=== PATIENT | male | born 1985 | race Caucasian/White ===

== ENCOUNTER 2019-01-26 22:26 | Inpatient (IN) | payer MEDICAID ==
[~2019-01-26] VITALS: Ht 167.6 cm; Wt 123.6 kg
[2019-01-26] MEDS ORDERED: SODIUM CHLORIDE 0.9% 1,000 ML IV ONE (22:31)
[2019-01-26] MEDS ORDERED: ASPIRIN 81MG TABLET PO ONE (22:45)
[2019-01-26] MEDS ORDERED: METOPROLOL TARTRATE 50MG TABLET PO ONE (22:45)
[2019-01-26 23:24] LABS: CHLORIDE 106 mEq/L (98-107)
[2019-01-26 23:26] LABS: BASOPHILS % 0.9 % (0.0-2.0); EOSINOPHILS % 2.2 % (0.0-5.0); HEMATOCRIT. 45.5 % (42.0-52.0); HEMOGLOBIN. 15.4 g/dL (14.0-18.0); MEAN CORPUSCULAR VOLUME 88.7 fL (80.0-94.0); MEAN PLATELET VOLUME 9.7 fl (7.4-10.4); MONOCYTES % 7.1 % (2.0-8.0); NEUTROPHILS % 70.8 % (40.0-76.0); PLATELET 178 x1000/uL (130-400); RED BLOOD CELL COUNT 5.13 mill/uL (4.7-6.1); RED CELL DISTRIBUTION WIDTH 15.2 % (11.6-14.6)
[2019-01-26 23:28] LABS: ETHANOL BLOOD < 10 mg/dL
[2019-01-26] MEDS ORDERED: ENOXAPARIN 120MG/0.8ML SYR SUBCUT NR (23:45)
[2019-01-27] VITALS (10 sets, daily range): BP systolic 99–153; BP diastolic 55–93
[2019-01-27] LABS: PROTHROMBIN TIME 10.6 sec (9.6-11.0)
[2019-01-27 00:19] LABS: *AMPHETAMINES SCREEN URINE NEGATIVE (NEGATIVE)
[2019-01-27 00:20] LABS: *BARBITURATES SCREEN URINE NEGATIVE (NEGATIVE); *BENZODIAZEPINES SCREEN URINE NEGATIVE (NEGATIVE); *COCAINE SCREEN URINE NEGATIVE (NEGATIVE); METHADONE URINE SCREEN NEGATIVE (NEGATIVE); OPIATES URINE SCREEN NEGATIVE (NEGATIVE); PHENCYCLIDINE URINE SCREEN NEGATIVE (NEGATIVE)
[2019-01-27 00:21] LABS: CANNABINOID URINE SCREEN PRESUMTIVE POSITIVE (NEGATIVE)
[2019-01-27] MEDS ORDERED: MORPHINE SULFATE 4 MG/ML CPJ (NOT FOR IM USE) IV ONE (00:30)
[2019-01-27] MEDS: ASPIRIN 81MG TABLET PO SCH (08:34)
[2019-01-27] MEDS: ENOXAPARIN 40MG/0.4ML SYR SUBCUT SCH ×2 (08:34→20:45)
[2019-01-27] MEDS ORDERED: ENOXAPARIN 40MG/0.4ML SYR SUBCUT SCH (09:00)
[2019-01-27] MEDS ORDERED: REGADENOSON 0.4 MG/5 ML IV SCH (10:15)
[2019-01-27 10:42] LABS: BASOPHILS % 0.6 % (0.0-2.0); EOSINOPHILS % 2.7 % (0.0-5.0); HEMATOCRIT. 41.8 % (42.0-52.0); LYMPHOCYTES % 23.2 % (20.0-50.0); MEAN CORPUSCULAR HEMOGLOBIN 29.9 pg (28.0-32.0); MEAN CORPUSCULAR VOLUME 89.3 fL (80.0-94.0); MEAN PLATELET VOLUME 10.4 fl (7.4-10.4); MONOCYTES % 5.7 % (2.0-8.0); NEUTROPHILS % 67.8 % (40.0-76.0); PLATELET 150 x1000/uL (130-400); RED BLOOD CELL COUNT 4.68 mill/uL (4.7-6.1); RED CELL DISTRIBUTION WIDTH 14.7 % (11.6-14.6)
[2019-01-27 11:44] LABS: CHLORIDE 107 mEq/L (98-107)
[2019-01-27] MEDS: KETOROLAC 30MG/ML VIAL IV PRN ×2 (14:21→20:42)
[2019-01-27 22:13] LABS: CREATINE KINASE MB FRACTION 1.8 ng/mL (0.5-3.6)
[2019-01-28] VITALS (10 sets, daily range): BP systolic 113–141; BP diastolic 65–86
[2019-01-28] MEDS: ENOXAPARIN 40MG/0.4ML SYR SUBCUT SCH ×2 (09:00→20:15)
[2019-01-28] MEDS: ASPIRIN 81MG TABLET PO SCH (12:54)
[2019-01-29] VITALS (9 sets, daily range): BP systolic 84–160; BP diastolic 47–84
[2019-01-29] MEDS: ASPIRIN 81MG TABLET PO SCH (08:34)
[2019-01-29] MEDS: ENOXAPARIN 40MG/0.4ML SYR SUBCUT SCH (08:34)
[2019-01-29] MEDS ORDERED: METOPROLOL TARTRATE 50MG TABLET PO SCH (09:00)
[2019-01-29 09:37] LABS: BASOPHILS % 0.5 % (0.0-2.0); EOSINOPHILS % 2.5 % (0.0-5.0); HEMATOCRIT. 45.1 % (42.0-52.0); HEMOGLOBIN. 15.2 g/dL (14.0-18.0); LYMPHOCYTES % 21.8 % (20.0-50.0); MEAN CORPUSCULAR HEMOGLOBIN 29.9 pg (28.0-32.0); MEAN CORPUSCULAR VOLUME 88.7 fL (80.0-94.0); MEAN PLATELET VOLUME 9.7 fl (7.4-10.4); MONOCYTES % 9.2 % (2.0-8.0); PLATELET 174 x1000/uL (130-400); RED BLOOD CELL COUNT 5.09 mill/uL (4.7-6.1); RED CELL DISTRIBUTION WIDTH 14.7 % (11.6-14.6)
[2019-01-29 09:41] LABS: CHLORIDE 109 mEq/L (98-107)
[2019-01-29 09:49] LABS: CREATINE KINASE 39 IU/L (39-308)
[2019-01-29 09:51] LABS: CREATINE KINASE MB FRACTION < 1.0 ng/mL (0.5-3.6)
[2019-01-29] MEDS ORDERED: REGADENOSON 0.4 MG/5 ML IV ONE (11:38)
[2019-01-29] MEDS ORDERED: METO-539 PO (12:58)
[2019-01-29] MEDS ORDERED: ASPI-1160 PO (12:58)
== END 2019-01-29 18:39 | disposition home or self-care (01) | DRG 201 ==
LOC: ER 22:26 → 3WST 01-27 00:19 → ENRESERV 01-27 02:45 → 3WST 01-27 23:48
PROVIDERS: ADMIT Internal Medicine; ATTEND Internal Medicine
DX: I47.1 Supraventricular tachycardia (principal); E66.01 Morbid (severe) obesity due to excess calories; E78.5 Hyperlipidemia, unspecified; F12.90 Cannabis use, unspecified, uncomplicated; F17.210 Nicotine dependence, cigarettes, uncomplicated; R73.9 Hyperglycemia, unspecified; I25.2 Old myocardial infarction; Z87.01 Personal history of pneumonia (recurrent); Z68.41 Body mass index [BMI] 40.0-44.9, adult; Z71.6 Tobacco abuse counseling; Z71.3 Dietary counseling and surveillance
CPT/HCPCS: 36415; 71045; 78452; 80048; 80061; 80305; 80320; 82550; 82553; 83605; 83735; 83880; 84443; 84484; 85379; 93005; 93017; 93306; 93970; 96361; 96372; 96374; 99291; A9500; J1650; J1885; J2270; J2785; J7030; G0480